=== PATIENT | male | born 1990 | race Caucasian/White ===

== ENCOUNTER 2017-07-23 10:16 | Inpatient (IN) | payer MEDICAID, OTHER ==
[~2017-07-23] VITALS: Ht 162.6 cm; Wt 46.6 kg
[~2017-07-23 10:16] MED LIST: ALLO100T PO; GABA-529 PO; LORA2TAB2 PO
[2017-07-23 11:02] LABS: GLUCOSE,POINT OF CARE 91 MG/DL (70-110)
[2017-07-23 11:17] LABS: BASOPHILS # (AUTO) 0.04 K/uL (0.00-0.20); BASOPHILS % (AUTO) 0.5 % (0.0-2.0); EOSINOPHILS % (AUTO) 0.02 % (1.0-6.0); HEMATOCRIT 52.2 % (41-53); HEMOGLOBIN 17.2 g/dL (13.5-17.5); LYMPHOCYTES % (AUTO) 10.9 % (22.0-44.0); MEAN CORPUSCULAR HEMOGLOBIN 37.3 pg (26.0-34.0); MEAN CORPUSCULAR HGB CONC 32.9 G/dL (31.0-37.0); MEAN CORPUSCULAR VOLUME 114 fL (80-100); MONOCYTES # (AUTO) 0.5 K/uL (0.1-1.0); MONOCYTES % (AUTO) 5.6 % (2.0-9.0); NEUTROPHILS # (AUTO) 7.9 K/uL (1.8-7.7); PLATELET COUNT (AUTO) 199 K/uL (150-450); WHITE BLOOD COUNT (AUTO) 9.5 K/uL (4.5-11.0)
[2017-07-23 11:20] LABS: RBC MORPHOLOGY COMMENT ABNORMAL RBC MORPH
[2017-07-23] MEDS ORDERED: LORazepam 2 MG/ML VIAL ONE (11:26)
[2017-07-23 11:29] LABS: ANION GAP 6 mmol/L (8-16); CALCIUM, TOTAL 9.2 mg/dL (8.8-10.5); CARBON DIOXIDE 33 mmol/L (22-29); CHLORIDE 103 mmol/L (98-107); CREATININE 0.72 mg/dL (0.60-1.30); GLOMERULAR FILTR. RATE CALC > 60 mL/min (>60); POTASSIUM 3.9 mmol/L (3.5-5.1); SODIUM SERUM 142 mmol/L (136-145); UREA NITROGEN, BLOOD 11 mg/dL (7-18)
[2017-07-23 11:36] LABS: ALANINE AMINOTRANSFERASE 24 U/L (12-78); ASPARTATE AMINOTRANSFERASE 20 U/L (15-37); BILIRUBIN,TOTAL 0.4 mg/dL (0.1-1.0); TOTAL PROTEIN, SERUM 8.2 g/dL (6.4-8.2)
[2017-07-23] MEDS ORDERED: LORazepam 2 MG/ML VIAL IM ONE ×2 (11:45→21:00)
[2017-07-23] MEDS ORDERED: HALOPERIDOL LACTATE 5 MG/ML VIAL IM ONE ×2 (14:45→21:15)
[2017-07-23] MEDS ORDERED: DiphenhydrAMINE HCL 50 MG/ML VIAL IM ONE ×2 (14:45→21:15)
[2017-07-24] MEDS ORDERED: HALOPERIDOL LACTATE 5 MG/ML VIAL IM ONE ×2 (05:30→12:30)
[2017-07-24] MEDS ORDERED: LORazepam 2 MG/ML VIAL IM ONE ×2 (05:30→12:30)
[2017-07-24] MEDS ORDERED: DiphenhydrAMINE HCL 50 MG/ML VIAL IM ONE ×2 (05:30→12:30)
[2017-07-24] MEDS: LORazepam 2 MG TABLET PO PRN (19:14)
[2017-07-24] MEDS: HALOPERIDOL 5 MG TABLET PO PRN (19:15)
[2017-07-24 20:45] VITALS: BP 125/83
[2017-07-25] MEDS: ZOLPIDEM TARTRATE 10 MG TABLET PO PRN (00:29)
[2017-07-25] MEDS ORDERED: INFLUENZA VIRUS VACCINE QVS 2017-18 (3YR+)/PF 60 MCG/0.5 ML SYRINGE IM ONE (03:45)
[2017-07-25] MEDS: LORazepam 2 MG TABLET PO PRN ×3 (05:04→16:47)
[2017-07-25] MEDS: HALOPERIDOL 5 MG TABLET PO PRN ×3 (05:14→16:48)
[2017-07-25 06:15] VITALS: BP 107/71
[2017-07-25 07:29] LABS: CHOL/HDL RATIO 4.6 (4.2-7.3); THYROID STIMULATING HORMONE 0.75 uIU/mL (0.36-3.74)
[2017-07-25] MEDS ORDERED: ALBUTEROL SULFATE HFA 90 MCG/PUFF 8 GM INHALER IH PRN (13:15)
[2017-07-25] MEDS ORDERED: BENZOCAINE/MENTHOL LOZENGE [8 LOZENGES/PACKET] MM PRN (13:15)
[2017-07-25] MEDS ORDERED: CloNIDine HCL 0.1 MG TABLET PO PRN (13:15)
[2017-07-25] MEDS ORDERED: ONDANSETRON HCL 4 MG TABLET PO PRN (13:15)
[2017-07-25] MEDS ORDERED: MAGNESIUM HYDROXIDE SUSPENSION 30 ML UDCUP PO PRN (13:15)
[2017-07-25] MEDS ORDERED: BACITRACIN 28.4 GM OINTMENT TP PRN (13:15)
[2017-07-25] MEDS ORDERED: BENZOCAINE/MENTHOL LOZENGE MM PRN (13:15)
[2017-07-25] MEDS ORDERED: ACETAMINOPHEN 325 MG TABLET PO PRN (13:15)
[2017-07-25] MEDS ORDERED: PETROLATUM,WHITE 71 GM JELLY TP PRN (13:15)
[2017-07-25] MEDS ORDERED: LOPERAMIDE HCL 2 MG CAPSULE PO PRN (13:15)
[2017-07-25] MEDS ORDERED: MAG HYDROX/AL HYDROX/SIMETH ES 30 ML SUSPENSION UDCUP PO PRN (13:15)
[2017-07-25 16:34] VITALS: BP 121/57
[2017-07-26] MEDS: HALOPERIDOL 5 MG TABLET PO PRN ×3 (03:16→18:12)
[2017-07-26] MEDS: LORazepam 2 MG TABLET PO PRN ×3 (03:16→18:12)
[2017-07-26] MEDS: DOCUSATE SODIUM 100 MG CAPSULE PO SCH (09:00)
[2017-07-26] MEDS: OMEPRAZOLE 20 MG CAPSULE PO SCH (09:22)
[2017-07-26 17:29] VITALS: BP 112/64
[2017-07-27] MEDS: ZOLPIDEM TARTRATE 10 MG TABLET PO PRN (02:30)
[2017-07-27] MEDS: LORazepam 2 MG TABLET PO PRN ×3 (02:30→17:43)
[2017-07-27] MEDS: HALOPERIDOL 5 MG TABLET PO PRN ×2 (08:02→17:43)
[2017-07-27] MEDS: DOCUSATE SODIUM 100 MG CAPSULE PO SCH (08:02)
[2017-07-27 08:28] VITALS: BP 111/63
[2017-07-27] MEDS: OMEPRAZOLE 20 MG CAPSULE PO SCH (10:47)
[2017-07-27 19:54] VITALS: BP 107/66
[2017-07-28 08:48] VITALS: BP 121/73
[2017-07-28] MEDS: OMEPRAZOLE 20 MG CAPSULE PO SCH (08:49)
[2017-07-28] MEDS: DOCUSATE SODIUM 100 MG CAPSULE PO SCH (08:49)
[2017-07-28] MEDS: HALOPERIDOL 5 MG TABLET PO PRN ×2 (08:51→18:08)
[2017-07-28] MEDS: LORazepam 2 MG TABLET PO PRN ×2 (08:51→18:08)
[2017-07-28 16:33] VITALS: BP 117/82
[2017-07-29] MEDS: HALOPERIDOL 5 MG TABLET PO PRN ×2 (07:43→17:52)
[2017-07-29] MEDS: LORazepam 2 MG TABLET PO PRN ×2 (07:43→17:52)
[2017-07-29] MEDS: OMEPRAZOLE 20 MG CAPSULE PO SCH (07:43)
[2017-07-29] MEDS: DOCUSATE SODIUM 100 MG CAPSULE PO SCH (07:43)
[2017-07-29 10:05] VITALS: BP 112/68
[2017-07-29 16:11] VITALS: BP 114/76
[2017-07-30 05:45] VITALS: BP 115/69
[2017-07-30] MEDS: DOCUSATE SODIUM 100 MG CAPSULE PO SCH ×2 (09:00→09:41)
[2017-07-30 09:25] VITALS: BP 113/65
[2017-07-30] MEDS: OMEPRAZOLE 20 MG CAPSULE PO SCH (09:41)
[2017-07-30] MEDS ORDERED: KCIT5T PO (10:57)
[2017-07-30] MEDS ORDERED: CefTRIAXone SODIUM 1 GM/VIAL IM ONE (11:00)
[2017-07-30] MEDS ORDERED: LIDOCAINE HCL/PF 1% 2 ML VIAL IM ONE (11:00)
[2017-07-30 16:10] VITALS: BP 132/82
[2017-07-30] MEDS: POTASSIUM CITRATE 5 MEQ ER TABLET PO SCH (18:17)
[2017-07-30] MEDS: ALLOPURINOL 100 MG TABLET PO SCH (18:18)
[2017-07-30] MEDS: IBUPROFEN 600 MG TABLET PO PRN (18:18)
[2017-07-30] MEDS: LORazepam 2 MG TABLET PO PRN (20:06)
[2017-07-30] MEDS: HALOPERIDOL 5 MG TABLET PO SCH (20:06)
[2017-07-31] MEDS: OMEPRAZOLE 20 MG CAPSULE PO SCH (08:02)
[2017-07-31] MEDS: DOCUSATE SODIUM 100 MG CAPSULE PO SCH (08:02)
[2017-07-31] MEDS: HALOPERIDOL 5 MG TABLET PO SCH ×2 (08:02→20:10)
[2017-07-31] MEDS: ALLOPURINOL 100 MG TABLET PO SCH ×2 (08:02→18:34)
[2017-07-31 08:03] VITALS: BP 112/61
[2017-07-31] MEDS: IBUPROFEN 600 MG TABLET PO PRN (08:03)
[2017-07-31] MEDS: LORazepam 2 MG TABLET PO PRN ×3 (08:03→18:34)
[2017-07-31] MEDS: POTASSIUM CITRATE 5 MEQ ER TABLET PO SCH ×2 (08:04→18:34)
[2017-07-31 16:00] VITALS: BP 115/78
[2017-08-01] MEDS: ALLOPURINOL 100 MG TABLET PO SCH ×2 (08:33→18:18)
[2017-08-01] MEDS: OMEPRAZOLE 20 MG CAPSULE PO SCH (08:33)
[2017-08-01] MEDS: POTASSIUM CITRATE 5 MEQ ER TABLET PO SCH ×2 (08:33→18:17)
[2017-08-01] MEDS: LORazepam 2 MG TABLET PO PRN ×2 (08:35→18:17)
[2017-08-01] MEDS: HALOPERIDOL 5 MG TABLET PO SCH ×2 (08:35→21:44)
[2017-08-01] MEDS: DOCUSATE SODIUM 100 MG CAPSULE PO SCH (09:00)
[2017-08-01 09:25] VITALS: BP 103/63
[2017-08-01] MEDS: ZOLPIDEM TARTRATE 10 MG TABLET PO PRN (21:44)
[2017-08-02 07:02] VITALS: BP 115/67
[2017-08-02] MEDS: OMEPRAZOLE 20 MG CAPSULE PO SCH (08:06)
[2017-08-02] MEDS: ALLOPURINOL 100 MG TABLET PO SCH ×2 (08:06→16:45)
[2017-08-02 08:07] VITALS: BP 111/82
[2017-08-02] MEDS: HALOPERIDOL 5 MG TABLET PO SCH ×2 (08:07→20:12)
[2017-08-02] MEDS: IBUPROFEN 600 MG TABLET PO PRN (08:07)
[2017-08-02] MEDS: DOCUSATE SODIUM 100 MG CAPSULE PO SCH (08:07)
[2017-08-02] MEDS: LORazepam 2 MG TABLET PO PRN ×2 (08:08→15:06)
[2017-08-02] MEDS: POTASSIUM CITRATE 5 MEQ ER TABLET PO SCH ×2 (08:08→16:46)
[2017-08-02 20:09] VITALS: BP 105/65
[2017-08-03 08:00] VITALS: BP 119/65
[2017-08-03] MEDS: POTASSIUM CITRATE 5 MEQ ER TABLET PO SCH ×2 (08:58→16:15)
[2017-08-03] MEDS: DOCUSATE SODIUM 100 MG CAPSULE PO SCH (08:59)
[2017-08-03] MEDS: OMEPRAZOLE 20 MG CAPSULE PO SCH (08:59)
[2017-08-03] MEDS: LORazepam 2 MG TABLET PO PRN (08:59)
[2017-08-03] MEDS: ALLOPURINOL 100 MG TABLET PO SCH ×2 (08:59→16:15)
[2017-08-03] MEDS: HALOPERIDOL 5 MG TABLET PO SCH ×2 (08:59→21:19)
[2017-08-03 16:06] VITALS: BP 121/71
[2017-08-03] MEDS: IBUPROFEN 600 MG TABLET PO PRN (17:09)
[2017-08-04 08:41] VITALS: BP 127/76
[2017-08-04] MEDS: DOCUSATE SODIUM 100 MG CAPSULE PO SCH (09:00)
[2017-08-04] MEDS: ALLOPURINOL 100 MG TABLET PO SCH ×2 (09:01→16:12)
[2017-08-04] MEDS: OMEPRAZOLE 20 MG CAPSULE PO SCH (09:01)
[2017-08-04] MEDS: POTASSIUM CITRATE 5 MEQ ER TABLET PO SCH ×2 (09:01→16:12)
[2017-08-04] MEDS: HALOPERIDOL 5 MG TABLET PO SCH ×2 (09:01→20:49)
[2017-08-04] MEDS: LORazepam 2 MG TABLET PO PRN (16:12)
[2017-08-04 16:25] VITALS: BP 122/82
[2017-08-05] MEDS: DOCUSATE SODIUM 100 MG CAPSULE PO SCH (08:14)
[2017-08-05] MEDS: ALLOPURINOL 100 MG TABLET PO SCH ×2 (08:15→16:19)
[2017-08-05] MEDS: OMEPRAZOLE 20 MG CAPSULE PO SCH (08:15)
[2017-08-05] MEDS: HALOPERIDOL 5 MG TABLET PO SCH ×2 (08:15→20:14)
[2017-08-05] MEDS: POTASSIUM CITRATE 5 MEQ ER TABLET PO SCH ×2 (08:15→16:22)
[2017-08-05 08:32] VITALS: BP 97/60
[2017-08-05 16:07] VITALS: BP 124/77
[2017-08-05] MEDS: LORazepam 2 MG TABLET PO PRN (16:17)
[2017-08-06] MEDS: IBUPROFEN 600 MG TABLET PO PRN ×2 (02:41→23:42)
[2017-08-06 02:53] VITALS: BP 113/73
[2017-08-06] MEDS: ALLOPURINOL 100 MG TABLET PO SCH ×2 (08:09→18:00)
[2017-08-06] MEDS: OMEPRAZOLE 20 MG CAPSULE PO SCH (08:09)
[2017-08-06] MEDS: DOCUSATE SODIUM 100 MG CAPSULE PO SCH (08:09)
[2017-08-06] MEDS: HALOPERIDOL 5 MG TABLET PO SCH ×2 (08:09→20:19)
[2017-08-06] MEDS: POTASSIUM CITRATE 5 MEQ ER TABLET PO SCH ×2 (08:10→18:00)
[2017-08-06 11:29] VITALS: BP 117/67
[2017-08-06 20:29] VITALS: BP 114/82
[2017-08-06] MEDS: ZOLPIDEM TARTRATE 10 MG TABLET PO PRN (23:41)
[2017-08-07] VITALS: BP 113/69
[2017-08-07] MEDS: ZOLPIDEM TARTRATE 10 MG TABLET PO PRN (00:03)
[2017-08-07] MEDS: IBUPROFEN 600 MG TABLET PO PRN ×2 (00:04→06:33)
[2017-08-07 06:30] VITALS: BP 112/73
[2017-08-07] MEDS: OMEPRAZOLE 20 MG CAPSULE PO SCH (08:39)
[2017-08-07] MEDS: DOCUSATE SODIUM 100 MG CAPSULE PO SCH (08:39)
[2017-08-07] MEDS: LORazepam 2 MG TABLET PO PRN (08:39)
[2017-08-07] MEDS: POTASSIUM CITRATE 5 MEQ ER TABLET PO SCH ×2 (08:39→16:13)
[2017-08-07] MEDS: HALOPERIDOL 5 MG TABLET PO SCH ×2 (08:39→21:19)
[2017-08-07] MEDS: ALLOPURINOL 100 MG TABLET PO SCH ×2 (08:40→16:13)
[2017-08-07 09:00] VITALS: BP 110/69
[2017-08-07] MEDS: SULFAMETHOX/TRIMETH DS 800-160 MG/TABLET PO SCH (16:13)
[2017-08-07 16:28] VITALS: BP 107/63
[2017-08-08] MEDS: IBUPROFEN 600 MG TABLET PO PRN (03:29)
[2017-08-08 03:38] VITALS: BP 123/74
[2017-08-08] MEDS: LORazepam 2 MG TABLET PO PRN (05:50)
[2017-08-08] MEDS: SULFAMETHOX/TRIMETH DS 800-160 MG/TABLET PO SCH (08:42)
[2017-08-08] MEDS: POTASSIUM CITRATE 5 MEQ ER TABLET PO SCH (08:42)
[2017-08-08] MEDS: DOCUSATE SODIUM 100 MG CAPSULE PO SCH (08:42)
[2017-08-08] MEDS: HALOPERIDOL 5 MG TABLET PO SCH (08:42)
[2017-08-08] MEDS: OMEPRAZOLE 20 MG CAPSULE PO SCH (08:42)
[2017-08-08] MEDS: ALLOPURINOL 100 MG TABLET PO SCH (08:43)
[2017-08-08 09:00] VITALS: BP 115/69
[2017-08-08] MEDS ORDERED: MUPIROCIN CALCIUM 2% 22 GM OINTMENT TP SCH (09:00)
[2017-08-08] MEDS ORDERED: BACTDSB PO (10:57)
[2017-08-08] MEDS ORDERED: MUPI1OIN5 TP (10:58)
[2017-08-08] MEDS ORDERED: OMEP20 PO (10:58)
[2017-08-08] MEDS ORDERED: HALO5 PO (10:59)
== END 2017-08-08 11:45 | disposition home or self-care (01) | DRG 751 ==
LOC: EMS 10:18 → 3EC 07-24 17:19
PROC: 0HQ9XZZ Repair Perineum Skin, External Approach (ICD-10-PCS; principal; 2017-07-30)
PROC: 3E0234Z Introduction of Serum, Toxoid and Vaccine into Muscle, Percutaneous Approach (ICD-10-PCS; 2017-07-30)
DX: F29 Unspecified psychosis not due to a substance or known physiological condition (principal); E79.1 Lesch-Nyhan syndrome; F41.9 Anxiety disorder, unspecified; G47.00 Insomnia, unspecified; S30.94XA Unspecified superficial injury of scrotum and testes, initial encounter; Z78.1 Physical restraint status; Z88.8 Allergy status to other drugs, medicaments and biological substances; Z79.899 Other long term (current) drug therapy; Z23 Encounter for immunization; X58.XXXA Exposure to other specified factors, initial encounter; Y93.89 Activity, other specified; Y92.89 Other specified places as the place of occurrence of the external cause; Y99.8 Other external cause status
CPT/HCPCS: 82962; 84439; 84443; 96372; 99285; G0480; J0696; J1200; J1630; J2060; J3490

== ENCOUNTER 2017-07-30 08:28 | Emergency (ER) | payer MEDICAID, OTHER ==
[2017-07-30 08:32] VITALS: BP 108/58
[2017-07-30] MEDS ORDERED: PERTUSS(ACELL),DIPH,TET VAC/PF 0.5 ML VIAL IM ONE (08:45)
[2017-07-30] MEDS ORDERED: KCIT5T PO (10:57)
== END 2017-07-30 08:43 | disposition home or self-care (01) ==
LOC: EMS 08:30
DX: S31.31XA Laceration without foreign body of scrotum and testes, initial encounter (principal); Z88.8 Allergy status to other drugs, medicaments and biological substances; X58.XXXA Exposure to other specified factors, initial encounter; Y93.89 Activity, other specified; Y92.89 Other specified places as the place of occurrence of the external cause; Y99.8 Other external cause status
CPT/HCPCS: 12002; 90471; 90715; 99283

== ENCOUNTER 2020-03-16 15:01 | Emergency (ER) | payer OTHER ==
[~2020-03-16] VITALS: Ht 157.5 cm; Wt 52.3 kg
[~2020-03-16 15:01] MED LIST changes: +BACTDSB PO; -GABA-529 PO; +HALO5TAB2 PO; +KCIT5T PO; -LORA2TAB2 PO; +MUPI1OIN5 TP; +OMEP20 PO
[2020-03-16] MEDS ORDERED: LORazepam 2 MG/ML VIAL IM ONE (16:15)
[2020-03-16] MEDS ORDERED: DiphenhydrAMINE HCL 50 MG/ML VIAL IM ONE (16:15)
[2020-03-16] MEDS ORDERED: HALOPERIDOL LACTATE 5 MG/ML VIAL IM ONE (16:15)
[2020-03-16 16:27] LABS: BASOPHILS % (AUTO) 0.9 % (0.0-2.0); EOSINOPHILS % (AUTO) 0.3 % (1.0-6.0); HEMATOCRIT 48.1 % (41-53); HEMOGLOBIN 16.1 g/dL (13.5-17.5); LYMPHOCYTES # (AUTO) 1.8 K/uL (1.0-4.8); LYMPHOCYTES % (AUTO) 31.9 % (22.0-44.0); MEAN CORPUSCULAR HEMOGLOBIN 37.8 pg (26.0-34.0); MEAN CORPUSCULAR HGB CONC 33.6 G/dL (31.0-37.0); MEAN CORPUSCULAR VOLUME 113 fL (80-100); MONOCYTES # (AUTO) 0.6 K/uL (0.1-1.0); MONOCYTES % (AUTO) 10.5 % (2.0-9.0); NEUTROPHILS # (AUTO) 3.2 K/uL (1.8-7.7); NEUTROPHILS % (AUTO) 56.4 % (40.0-70.0); PLATELET COUNT (AUTO) 176 K/uL (150-450); RED BLOOD CELL COUNT(AUTO) 4.27 MIL/uL (4.50-5.90); RED CELL DISTRIBUTION WIDTH 15.1 % (11.5-14.5)
[2020-03-16 16:36] LABS: ANION GAP 10 mmol/L (8-16); CALCIUM, TOTAL 8.9 mg/dL (8.8-10.5); CARBON DIOXIDE 28 mmol/L (22-29); CHLORIDE 104 mmol/L (98-107); CREATININE 0.68 mg/dL (0.60-1.30); GLOMERULAR FILTR. RATE CALC > 60 mL/min (>60); GLUCOSE,RANDOM 108 mg/dL (70-110); POTASSIUM 3.8 mmol/L (3.5-5.1); SODIUM SERUM 142 mmol/L (136-145); UREA NITROGEN, BLOOD 10 mg/dL (7-18)
[2020-03-16 16:42] LABS: ALANINE AMINOTRANSFERASE 25 U/L (12-78); ALBUMIN 4.1 g/dL (3.4-5.0); ALKALINE PHOSPHATASE 115 U/L (46-116); ASPARTATE AMINOTRANSFERASE 26 U/L (15-37); BILIRUBIN,TOTAL 0.4 mg/dL (0.1-1.0); LIPASE 164 U/L (73-393); TOTAL PROTEIN, SERUM 7.8 g/dL (6.4-8.2); URIC ACID 2.1 mg/dL (2.6-7.2)
[2020-03-16 17:59] LABS: APPEARANCE,URINE CLOUDY (CLEAR); BILIRUBIN,URINE NEGATIVE (NEGATIVE); GLUCOSE, URINE (UA) NEGATIVE (NEGATIVE); KETONES,URINE NEGATIVE (NEGATIVE); LEUKOCYTE ESTERASE ,URINE NEGATIVE (NEGATIVE); NITRATE,URINE NEGATIVE (NEGATIVE); OCCULT BLOOD,URINE MODERATE (NEGATIVE); PROTEIN,URINE NEGATIVE (NEGATIVE)
[2020-03-16 18:01] LABS: BACTERIA,URINE Rare /HPF (None Seen); RBC,URINE 26-50 /HPF (0-2); SQUAMOUS EPITHELIAL CELL,UR Rare /LPF (None Seen)
[2020-03-16] MEDS ORDERED: QUEtiapine FUMARATE 100 MG TABLET PO ONE (19:45)
[2020-03-16 20:30] VITALS: BP 121/69
[2020-03-17] MEDS ORDERED: SODIUM CHLORIDE 0.9% 1,000 ML IV ONE (22:15)
[2020-03-17] MEDS ORDERED: KETOROLAC TROMETHAMINE 30 MG/ML VIAL IVP ONE (22:15)
== END 2020-03-16 20:55 | disposition home or self-care (01) ==
LOC: EMS 15:03
DX: E79.1 Lesch-Nyhan syndrome (principal); K56.41 Fecal impaction; N20.1 Calculus of ureter; Z88.8 Allergy status to other drugs, medicaments and biological substances; Z79.899 Other long term (current) drug therapy
CPT/HCPCS: 36415; 71045; 74176; 80053; 81001; 83690; 83735; 84550; 85025; 96372; 99285; J1200; J1630; J2060

== ENCOUNTER 2020-03-17 21:25 | Emergency (ER) | payer OTHER ==
[~2020-03-17] VITALS: Ht 154.9 cm; Wt 54.5 kg
[2020-03-17 22:27] LABS: HEMOGLOBIN 15.3 g/dL (13.5-17.5); MEAN CORPUSCULAR HGB CONC 32.9 G/dL (31.0-37.0); MONOCYTES # (AUTO) 0.4 K/uL (0.1-1.0)
[2020-03-17 22:35] LABS: BASOPHILS % (AUTO) 0.2 % (0.0-2.0); EOSINOPHILS % (AUTO) 0.1 % (1.0-6.0); LYMPHOCYTES # (AUTO) 1.3 K/uL (1.0-4.8); LYMPHOCYTES % (AUTO) 34.9 % (22.0-44.0); MEAN CORPUSCULAR VOLUME 112 fL (80-100); MONOCYTES % (AUTO) 10.5 % (2.0-9.0); NEUTROPHILS % (AUTO) 54.3 % (40.0-70.0)
[2020-03-17 22:36] LABS: ANION GAP 8 mmol/L (8-16); CARBON DIOXIDE 27 mmol/L (22-29); CHLORIDE 102 mmol/L (98-107); CREATININE 0.79 mg/dL (0.60-1.30); GLOMERULAR FILTR. RATE CALC > 60 mL/min (>60); GLUCOSE,RANDOM 121 mg/dL (70-110); POTASSIUM 3.5 mmol/L (3.5-5.1); SODIUM SERUM 137 mmol/L (136-145); UREA NITROGEN, BLOOD 10 mg/dL (7-18)
[2020-03-17 22:37] LABS: HEMATOCRIT 46.5 % (41-53); MEAN CORPUSCULAR HEMOGLOBIN 36.7 pg (26.0-34.0); RED BLOOD CELL COUNT(AUTO) 4.16 MIL/uL (4.50-5.90); RED CELL DISTRIBUTION WIDTH 14.8 % (11.5-14.5)
[2020-03-17 22:42] LABS: ALANINE AMINOTRANSFERASE 30 U/L (12-78); ALBUMIN 3.7 g/dL (3.4-5.0); ALKALINE PHOSPHATASE 97 U/L (46-116); ASPARTATE AMINOTRANSFERASE 42 U/L (15-37); BILIRUBIN,TOTAL 0.4 mg/dL (0.1-1.0); TOTAL PROTEIN, SERUM 6.9 g/dL (6.4-8.2)
[2020-03-17 22:45] LABS: PLATELET COUNT (AUTO) 160 K/uL (150-450)
[2020-03-18] MEDS ORDERED: SODIUM CHLORIDE 0.9% 1,000 ML IV ONE (00:30)
[2020-03-18] MEDS ORDERED: DiphenhydrAMINE HCL 50 MG/ML VIAL IM ONE (01:45)
[2020-03-18] MEDS ORDERED: HALOPERIDOL LACTATE 5 MG/ML VIAL IM ONE (01:45)
[2020-03-18 02:26] LABS: APPEARANCE,URINE CLEAR (CLEAR); BILIRUBIN,URINE NEGATIVE (NEGATIVE); GLUCOSE, URINE (UA) NEGATIVE (NEGATIVE); KETONES,URINE NEGATIVE (NEGATIVE); LEUKOCYTE ESTERASE ,URINE NEGATIVE (NEGATIVE); NITRATE,URINE NEGATIVE (NEGATIVE); OCCULT BLOOD,URINE SMALL (NEGATIVE); PROTEIN,URINE NEGATIVE (NEGATIVE)
[2020-03-18 02:29] LABS: WBC,URINE 0-2 /HPF (0-5)
[2020-03-18 02:30] LABS: BACTERIA,URINE Rare /HPF (None Seen); SQUAMOUS EPITHELIAL CELL,UR Few /LPF (None Seen)
[2020-03-18] MEDS ORDERED: QUET25TA PO (02:54)
[2020-03-18] MEDS ORDERED: MELA5TAB3 PO (02:54)
[2020-03-18] MEDS ORDERED: DOXY-354 PO (02:54)
[2020-03-18] MEDS ORDERED: DIPH25CA85 PO (02:54)
[2020-03-18 03:15] VITALS: BP 129/82
== END 2020-03-18 04:34 | disposition home or self-care (01) ==
LOC: EMS 21:25
DX: K56.41 Fecal impaction (principal)
CPT/HCPCS: 36415; 74018; 76770; 80053; 81001; 85025; 99285; J7030; J1200; J1630